=== PATIENT | male | born 1955 | race Hispanic/Latino ===

== ENCOUNTER 2017-12-23 04:01 | Emergency (ER) | payer SELFPAY ==
[2017-12-23] MEDS ORDERED: ASPIRIN PO ONE (04:45)
--- NOTE | 2017-12-23 05:09 | XRay Report ---
FINAL REPORT EXAM: XR CHEST ROUTINE 2V HISTORY: syncopy TECHNIQUE: PA and lateral views of the chest were submitted. There are no previous studies available for comparison. FINDINGS: Heart size and mediastinum appear normal. The lungs are clear. Pleural fluid is not seen. The skeletal structures reveal generalized osteoporosis. IMPRESSION: No active chest disease.
[2017-12-23 05:16] LABS: Basophils # (Auto) 0.1 K/mm3 (0.0-0.1); Basophils % (Auto) 0.9 % (0.0-1.8); Eosinophils # (Auto) 0.1 K/mm3 (0.0-0.4); Eosinophils % (Auto) 1.5 % (0.0-4.3); Hematocrit 38.1 % (35.5-45.6); Hemoglobin 13.2 gm/dl (11.8-15.2); Lymphocytes # (Auto) 0.7 K/mm3 (1.2-5.4); Lymphocytes % (Auto) 13.1 % (13.4-35.0); Mean Corpuscular HGB Conc 35 % (32-34); Mean Corpuscular Hemoglobin 36 pg (28-32); Mean Corpuscular Volume 103 fl (84-94); Monocytes # (Auto) 0.4 K/mm3 (0.0-0.8); Monocytes % (Auto) 6.6 % (0.0-7.3); Platelet Count 127 K/mm3 (140-440); Red Cell Distribution Width 13.8 % (13.2-15.2)
[2017-12-23 05:34] LABS: BUN/Creatinine Ratio 7; Blood Urea Nitrogen 7 mg/dL (9-20); Calcium 8.6 mg/dL (8.4-10.2); Hemolysis Index 8
--- NOTE | 2017-12-23 06:06 | Cat Scan Report ---
FINAL REPORT EXAM: CT HEAD/BRAIN WO CON HISTORY: syncopy fell and hit head TECHNIQUE: Routine axial imaging was obtained of the brain without IV contrast. FINDINGS: There is mild generalized atrophy. There is no evidence of acute stroke or hemorrhage. The ventricular system is appropriate in size and is symmetric. The visualized sinuses are clear. The mastoid air cells are well pneumatized. The calvarium appears intact IMPRESSION: Mild generalized atrophy. No acute intracranial process.
[2017-12-23] MEDS ORDERED: NORMODYNE IV ONE ×4 (10:40→13:21)
[2017-12-23] MEDS ORDERED: TORADOL IV ONE (11:02)
[2017-12-23] MEDS ORDERED: NORCO 5/325 PO ONE (11:02)
[2017-12-23] MEDS ORDERED: ZOFRAN IV ONE (11:02)
[2017-12-23] MEDS ORDERED: NACL 0.9% 500 ML 500 ML IV ONE (11:03)
[2017-12-23] MEDS ORDERED: MORPHINE IV ONE (11:03)
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
[2017-12-23] MEDS ORDERED: ZOFRAN ONE (13:21)
[2017-12-23] MEDS ORDERED: MORPHINE ONE (13:22)
[2017-12-23] MEDS ORDERED: ASPIRIN ONE (13:46)
[2017-12-23 13:51] VITALS: BP 147/95
== END 2017-12-23 18:02 | disposition home or self-care (01) ==
LOC: ED 04:01
DX: G44.319 Acute post-traumatic headache, not intractable (principal); R07.89 Other chest pain; E86.0 Dehydration; I16.0 Hypertensive urgency; I10 Essential (primary) hypertension; Z87.891 Personal history of nicotine dependence
CPT/HCPCS: 36415; 70450; 71046; 80048; 84484; 85025; 93005; 93010; 96361; 96374; 96375; 99285; J2270; J2405; J7040